=== PATIENT | female | born 1985 | race Caucasian/White ===

== ENCOUNTER 2017-04-15 09:04 | Emergency (ER) | payer OTHER ==
[~2017-04-15] VITALS: Ht 157.5 cm; Wt 63.5 kg
[~2017-04-15 09:04] MED LIST: IBUPROFEN800 MG PO
== END 2017-04-15 12:40 | disposition home or self-care (01) ==
LOC: ER 09:04
DX: J11.1 Influenza due to unidentified influenza virus with other respiratory manifestations (principal); J06.9 Acute upper respiratory infection, unspecified

== ENCOUNTER 2018-05-22 11:29 | Emergency (ER) | payer OTHER ==
[~2018-05-22] VITALS: Ht 157.5 cm; Wt 67.1 kg
== END 2018-05-22 14:42 | disposition home or self-care (01) ==
LOC: ER 11:29
DX: M54.2 Cervicalgia (principal)

== ENCOUNTER 2018-08-11 06:09 | Emergency (ER) | payer OTHER ==
[~2018-08-11] VITALS: Ht 157.5 cm; Wt 66.7 kg
== END 2018-08-11 11:28 | disposition home or self-care (01) ==
LOC: ER 06:09
DX: R05 Cough (principal); R11.11 Vomiting without nausea

== ENCOUNTER 2018-10-04 13:03 | Emergency (ER) | payer OTHER ==
[~2018-10-04] VITALS: Ht 157.5 cm; Wt 70.3 kg
== END 2018-10-04 15:50 | disposition home or self-care (01) ==
LOC: ER 13:03
DX: G43.909 Migraine, unspecified, not intractable, without status migrainosus (principal)

== ENCOUNTER 2019-02-16 10:30 | Emergency (ER) | payer OTHER ==
[~2019-02-16] VITALS: Ht 157.5 cm; Wt 66.7 kg
[2019-02-16] MEDS ORDERED: SILVADENE20 GM TOP (11:51)
== END 2019-02-16 12:37 | disposition home or self-care (01) ==
LOC: ER 10:30
DX: T23.111A Burn of first degree of right thumb (nail), initial encounter (principal); X10.2XXA Contact with fats and cooking oils, initial encounter; Y93.89 Activity, other specified; Y92.89 Other specified places as the place of occurrence of the external cause; Y99.8 Other external cause status

== ENCOUNTER 2019-03-12 07:39 | Outpatient (CLI) | payer OTHER ==
[~2019-03-12 07:39] MED LIST changes: +SILVADENE20 GM TOP
== END 2019-03-13 09:43 | disposition home or self-care (01) ==
LOC: SONOGRAMA 07:39
DX: R79.1 Abnormal coagulation profile (principal); N84.0 Polyp of corpus uteri

== ENCOUNTER 2019-07-04 07:14 | Outpatient (CLI) | payer OTHER | END 2019-07-04 07:17 | disposition home or self-care (01) | LOC: MRI 07:14 | DX: M54.2 Cervicalgia (principal); M54.12 Radiculopathy, cervical region | CPT/HCPCS: 72141 ==